=== PATIENT | male | born 1995 | race African-American/Black ===

== ENCOUNTER 2021-01-08 04:20 | Inpatient (IN) | payer OTHER ==
[2021-01-08] MEDS ORDERED: SODIUM CHLORIDE 0.9% 500 ML INFUS.BAG IV ONE (04:23)
[2021-01-08] MEDS ORDERED: ONDANSETRON 4 MG/2 ML VIAL IVPB ONE (04:23)
[2021-01-08] MEDS ORDERED: morphine CARPU-JECT 2 MG/1 ML DISP.SYRIN IVPUSH ONE (04:29)
[2021-01-08] MEDS ORDERED: morphine SULFATE 4 MG/ML VIAL ONE (04:39)
[2021-01-08 05:00] LABS: BASO % 0.5 % (0-2.0); EOS % 1.6 % (0-4.5); HEMATOCRIT 41.5 % (35.4-49); HEMOGLOBIN 13.7 GM/dL (11.7-16.9); LYMPH % 29.8 % (8-40); MCH 24.4 pg (25.7-33.7); MCHC 33.1 g/dl (32.0-35.9); MEAN CELL VOLUME 73.7 fl (80-96); MEAN PLT VOLUME 7.8 fl (7.5-11.1); MONO % 9.2 % (3.8-10.2); NEUT % 58.9 % (42.8-82.8); PLATELET COUNT 388 10^3/uL (134-434); RBC 5.63 M/mm3 (4.00-5.60); RDW 15.4 % (11.9-15.9); WHITE BLOOD COUNT 19.2 K/mm3 (4.0-10.0)
[2021-01-08 05:22] LABS: ALBUMIN 3.8 g/dl (3.4-5.0); BLOOD UREA NITROGEN 7.1 mg/dL (7-18); CALCIUM 8.9 mg/dL (8.5-10.1)
[2021-01-08 05:25] LABS: CREATININE 0.9 mg/dL (0.55-1.3)
[2021-01-08 05:27] LABS: BILIRUBIN,TOTAL 0.3 mg/dL (0.2-1); TOT PROT 7.8 g/dl (6.4-8.2)
[2021-01-08] MEDS ORDERED: DEXAMETHASONE SOD PHOSPHATE 10 MG/1 ML VIAL IVPUSH ONE (06:28)
[2021-01-08] MEDS ORDERED: DEXAMETHASONE SOD PHOSPHATE 10 MG/1 ML VIAL ONE (06:41)
[2021-01-08] MEDS ORDERED: METOCLOPRAMIDE HCL INJECTION 10 MG/2 ML VIAL IVPB ONE (07:11)
[2021-01-08] MEDS ORDERED: METOCLOPRAMIDE HCL INJECTION 10 MG/2 ML VIAL ONE (07:32)
[2021-01-08] MEDS ORDERED: ONDANSETRON 4 MG/2 ML VIAL IVPUSH ONE (07:33)
[2021-01-08] MEDS ORDERED: ONDANSETRON 4 MG/2 ML VIAL ONE (07:45)
[2021-01-08] MEDS ORDERED: morphine CARPU-JECT 2 MG/1 ML DISP.SYRIN IVPUSH PRN (08:59)
[2021-01-08] MEDS ORDERED: ACETAMINOPHEN 1000 MG/100 ML VIAL IVPB PRN (09:02)
[2021-01-08] MEDS ORDERED: morphine SULFATE 4 MG/ML VIAL IVPUSH PRN (09:02)
[2021-01-08] MEDS ORDERED: CEFEPIME HCL/D5W 2 GM/50 ML BAG IVPB SCH (10:00)
[2021-01-08] MEDS: LACTATED RINGERS SOLUTION 1,000 ML IV SCH ×2 (11:00→17:31)
[2021-01-08] MEDS ORDERED: CEFEPIME 2 GM/100 ML BAG IVPB ONE (11:55)
[2021-01-08] MEDS: CEFEPIME 2 GM in DEXTROSE 5%-WATER 2 GM/100 ML BAG IVPB SCH ×2 (13:58→19:43)
[2021-01-08 16:39] VITALS: BMI 27.1
[2021-01-08] MEDS ORDERED: PT OWN MED DRAWER 7, Y5N ONE (18:26)
[2021-01-08] MEDS: ONDANSETRON 4 MG/2 ML VIAL IVPUSH PRN (18:33)
[2021-01-08 18:43] LABS: URINE BARBITURATES NEGATIVE (NEGATIVE)
[2021-01-08 18:44] LABS: COCAINE, UR NEGATIVE (NEGATIVE); METHADONE, UR NEGATIVE (NEGATIVE); OPIATES, URI NEGATIVE (NEGATIVE); PHENCYCLIDINE,URINE NEGATIVE (NEGATIVE); URINE BENZODIAZEPINES NEGATIVE (NEGATIVE)
[2021-01-08 18:48] LABS: URINE AMPHETAMINES NEGATIVE (NEGATIVE)
[2021-01-08] MEDS: MESALAMINE 800 MG TABLET.DR PO SCH ×2 (19:13→21:33)
[2021-01-09] MEDS: ONDANSETRON 4 MG/2 ML VIAL IVPUSH PRN ×3 (00:24→13:26)
[2021-01-09] MEDS: CEFEPIME 2 GM in DEXTROSE 5%-WATER 2 GM/100 ML BAG IVPB SCH (01:06)
[2021-01-09] MEDS: LACTATED RINGERS SOLUTION 1,000 ML IV SCH (03:32)
[2021-01-09] MEDS: MESALAMINE 800 MG TABLET.DR PO SCH ×2 (06:07→13:27)
[2021-01-09 09:01] LABS: HEMATOCRIT 40.8 % (35.4-49); HEMOGLOBIN 13.6 GM/dL (11.7-16.9); MCH 24.5 pg (25.7-33.7); MCHC 33.4 g/dl (32.0-35.9); MEAN CELL VOLUME 73.2 fl (80-96); MEAN PLT VOLUME 8.3 fl (7.5-11.1); PLATELET COUNT 337 10^3/uL (134-434); RBC 5.57 M/mm3 (4.00-5.60); RDW 15.3 % (11.9-15.9); WHITE BLOOD COUNT 22.5 K/mm3 (4.0-10.0)
[2021-01-09] MEDS ORDERED: KETOROLAC TROMETHAMINE 30 MG/1 ML VIAL IVPUSH SCH (10:00)
[2021-01-09] MEDS ORDERED: ENOXAPARIN NA (PORCINE) 40 MG/0.4 ML DISP.SYRIN SQ SCH (10:00)
[2021-01-09] MEDS ORDERED: methylPREDNISolone NA SUCC 40 MG/1 ML VIAL IVPUSH SCH (10:00)
[2021-01-09 10:21] LABS: ANISOCYTOSIS 0; HELMET CELLS 0; HOWELL-JOLLY BODIES 0; MACROCYTOSIS 0; OVALOCYTE 0; PLATELET ESTIMATE NORMAL; ROULEAU 0; SICKELED CELLS 0; TARGET CELLS 0; TEAR DROP CELLS 0; TOXIC GRANULATION 0
[2021-01-09 11:10] LABS: ALBUMIN 3.8 g/dl (3.4-5.0); BILIRUBIN,TOTAL 0.4 mg/dL (0.2-1); BLOOD UREA NITROGEN 6.8 mg/dL (7-18); CALCIUM 8.9 mg/dL (8.5-10.1); CREATININE 0.9 mg/dL (0.55-1.3); TOT PROT 7.7 g/dl (6.4-8.2)
[2021-01-09 12:17] LABS: PHOSPHOROUS 3.3 mg/dL (2.5-4.9)
[2021-01-09] MEDS ORDERED: PT OWN MED DRAWER 7, Y5N ONE (13:23)
[2021-01-09 13:47] VITALS: BP 138/79; PULSE 69; TEMP 98.7
[2021-01-09] MEDS ORDERED: CEFTRIAXONE 2 GM in DEXTROSE 5%-WATER 2 GM/100 ML BAG IVPB SCH ×2 (14:00→14:15)
[2021-01-09] MEDS ORDERED: DEXTROSE 5%-WATER 100 ML IVPB ONE (15:08)
== END 2021-01-09 17:15 | disposition left against medical advice (07) | DRG 245 ==
LOC: JER 04:20 → JERBED 06:30 → J8W 14:30
PROVIDERS: ADMIT Internal Medicine; ATTEND Internal Medicine
DX: K50.919 Crohn's disease, unspecified, with unspecified complications (principal); A09 Infectious gastroenteritis and colitis, unspecified; F12.90 Cannabis use, unspecified, uncomplicated; F90.9 Attention-deficit hyperactivity disorder, unspecified type; R11.2 Nausea with vomiting, unspecified; R59.0 Localized enlarged lymph nodes; D72.829 Elevated white blood cell count, unspecified; Z90.49 Acquired absence of other specified parts of digestive tract
CPT/HCPCS: 36415; 74177-TC; 74182-TC; 80053; 80307; 82746; 83690; 83735; 84100; 84425; 84443; 85025; 86140; 87040; 87045; 87046; 87177; 87209; 87324; 87449; 93005; 93010; 99285-25; C1887; C9803; J1100; Q9967; U0003; U0005

== ENCOUNTER 2021-03-11 10:49 | Inpatient (IN) | payer OTHER ==
[2021-03-11] MEDS ORDERED: morphine CARPU-JECT 4 MG/1 ML DISP.SYRIN IVPUSH ONE ×2 (11:39→19:08)
[2021-03-11] MEDS ORDERED: SODIUM CHLORIDE 1,000 ML IV STA (11:39)
[2021-03-11] MEDS ORDERED: ONDANSETRON 4 MG/2 ML VIAL IVPUSH ONE ×3 (11:39→19:08)
[2021-03-11] MEDS ORDERED: morphine SULFATE 4 MG/ML VIAL ONE ×2 (11:59→19:09)
[2021-03-11] MEDS ORDERED: ONDANSETRON 4 MG/2 ML VIAL ONE ×3 (11:59→19:11)
[2021-03-11 12:30] LABS: BASO % 0.5 % (0-2.0); EOS % 0.1 % (0-4.5); HEMATOCRIT 39.5 % (35.4-49); HEMOGLOBIN 12.6 GM/dL (11.7-16.9); LYMPH % 9.1 % (8-40); MCH 23.2 pg (25.7-33.7); MCHC 31.8 g/dl (32.0-35.9); MEAN CELL VOLUME 73.2 fl (80-96); MEAN PLT VOLUME 8.2 fl (7.5-11.1); MONO % 4.2 % (3.8-10.2); NEUT % 86.1 % (42.8-82.8); PLATELET COUNT 404 10^3/uL (134-434); RDW 15.7 % (11.9-15.9); WHITE BLOOD COUNT 15.4 K/mm3 (4.0-10.0)
[2021-03-11 13:20] LABS: CALCIUM 9.3 mg/dL (8.5-10.1)
[2021-03-11 13:21] LABS: ALBUMIN 3.8 g/dl (3.4-5.0); BLOOD UREA NITROGEN 7.8 mg/dL (7-18)
[2021-03-11 13:24] LABS: CREATININE 0.8 mg/dL (0.55-1.3)
[2021-03-11 13:25] LABS: BILIRUBIN,TOTAL 0.3 mg/dL (0.2-1)
[2021-03-11 13:26] LABS: TOT PROT 7.3 g/dl (6.4-8.2)
[2021-03-11] MEDS ORDERED: LORazepam 2 MG/ML SDV VIAL IVPUSH ONE (14:38)
[2021-03-11] MEDS ORDERED: methylPREDNISolone NA SUCC 40 MG/1 ML VIAL IVPUSH ONE (18:09)
[2021-03-11] MEDS ORDERED: methylPREDNISolone NA SUCC 40 MG/1 ML VIAL ONE (18:15)
[2021-03-11 18:37] LABS: URINE APPEARANCE CLEAR; URINE BILIRUBIN NEGATIVE (NEGATIVE); URINE COLOR YELLOW; URINE GLUCOSE (UA) NEGATIVE (NEGATIVE); URINE KETONE NEGATIVE (NEGATIVE); URINE LEUK ESTERASE NEGATIVE (NEGATIVE); URINE NITRITE NEGATIVE (NEGATIVE); URINE PROTEIN NEGATIVE (NEGATIVE); URINE UROBILINOGEN 0.2 mg/dL (0.2-1.0)
[2021-03-11] MEDS ORDERED: METOCLOPRAMIDE HCL INJECTION 10 MG/2 ML VIAL IVPUSH PRN (20:34)
[2021-03-11] MEDS ORDERED: LACTATED RINGERS SOLUTION 1,000 ML IV SCH (20:45)
[2021-03-11] MEDS ORDERED: ACETAMINOPHEN 1000 MG/100 ML BAG IVPB PRN (21:05)
[2021-03-11] MEDS ORDERED: CEFEPIME HCL/D5W 2 GM/50 ML BAG IVPB ONE (21:33)
[2021-03-11] MEDS: SODIUM CHLORIDE 1,000 ML IV SCH (21:42)
[2021-03-11] MEDS ORDERED: CEFTRIAXONE 1 GM/50 ML BAG ONE (21:48)
[2021-03-11] MEDS: CEFTRIAXONE 1 GM in DEXTROSE 5%-WATER - 50 ML IVPB SCH (21:52)
[2021-03-11] MEDS ORDERED: METOCLOPRAMIDE HCL INJECTION 10 MG/2 ML VIAL ONE (22:16)
[2021-03-11] MEDS ORDERED: ACETAMINOPHEN INJECTION 100 ML IVPB ONE (22:37)
[2021-03-12] MEDS ORDERED: HYDROCORTISONE SOD SUCCINATE 100 MG/2 ML VIAL ONE (08:31)
[2021-03-12] MEDS ORDERED: PANTOPRAZOLE SODIUM 40 MG/100 ML BAG IVPB ONE (08:31)
[2021-03-12] MEDS ORDERED: ENOXAPARIN NA (PORCINE) 40 MG/0.4 ML DISP.SYRIN SQ ONE (08:31)
[2021-03-12] MEDS ORDERED: CEFTRIAXONE 1 GM/50 ML BAG ONE (08:31)
[2021-03-12 08:49] LABS: HEMATOCRIT 39.6 % (35.4-49); HEMOGLOBIN 12.6 GM/dL (11.7-16.9); MCH 23.1 pg (25.7-33.7); MCHC 31.7 g/dl (32.0-35.9); MEAN CELL VOLUME 72.9 fl (80-96); MEAN PLT VOLUME 7.9 fl (7.5-11.1); PLATELET COUNT 457 10^3/uL (134-434); RBC 5.43 M/mm3 (4.00-5.60); RDW 15.9 % (11.9-15.9); WHITE BLOOD COUNT 21.2 K/mm3 (4.0-10.0)
[2021-03-12 09:19] LABS: ALBUMIN 3.7 g/dl (3.4-5.0); BLOOD UREA NITROGEN 5.5 mg/dL (7-18); MAGNESIUM 1.8 mg/dL (1.8-2.4)
[2021-03-12 09:22] LABS: CREATININE 0.8 mg/dL (0.55-1.3); PHOSPHOROUS 3.4 mg/dL (2.5-4.9)
[2021-03-12 09:24] LABS: BILIRUBIN,TOTAL 0.3 mg/dL (0.2-1); TOT PROT 7.5 g/dl (6.4-8.2)
[2021-03-12] MEDS ORDERED: methylPREDNISolone NA SUCC 40 MG/1 ML VIAL IVPUSH SCH (10:00)
[2021-03-12] MEDS: PANTOPRAZOLE SODIUM 40 MG VIAL IVPUSH SCH (10:15)
[2021-03-12] MEDS: CEFTRIAXONE 1 GM in DEXTROSE 5%-WATER - 50 ML IVPB SCH (11:26)
[2021-03-12] MEDS: ENOXAPARIN NA (PORCINE) 40 MG/0.4 ML DISP.SYRIN SQ SCH (11:27)
[2021-03-12] MEDS: SODIUM CHLORIDE 1,000 ML IV SCH (18:19)
[2021-03-12 23:55] VITALS: TEMP 98.4; BMI 24.0
[2021-03-13] MEDS ORDERED: MELATONIN 5 MG TABLETS PO ONE (02:28)
[2021-03-13 06:15] VITALS: BP 131/62; PULSE 70
[2021-03-13] MEDS ORDERED: cefTRIAXone SODIUM 1 GM VIAL ONE (10:08)
[2021-03-13] MEDS ORDERED: DEXTROSE 5%-WATER - 50 ML IVPB ONE (10:08)
[2021-03-13] MEDS: SODIUM CHLORIDE 1,000 ML IV SCH (10:10)
[2021-03-13] MEDS: PANTOPRAZOLE SODIUM 40 MG VIAL IVPUSH SCH (10:11)
[2021-03-13] MEDS: CEFTRIAXONE 1 GM in DEXTROSE 5%-WATER - 50 ML IVPB SCH (10:11)
[2021-03-13] MEDS: ENOXAPARIN NA (PORCINE) 40 MG/0.4 ML DISP.SYRIN SQ SCH (10:12)
[2021-03-13 11:45] LABS: BASO % 0.5 % (0-2.0); EOS % 0.7 % (0-4.5); HEMATOCRIT 37.1 % (35.4-49); HEMOGLOBIN 12.4 GM/dL (11.7-16.9); LYMPH % 25.1 % (8-40); MCH 24.4 pg (25.7-33.7); MCHC 33.4 g/dl (32.0-35.9); MEAN CELL VOLUME 72.9 fl (80-96); MEAN PLT VOLUME 7.8 fl (7.5-11.1); MONO % 12.5 % (3.8-10.2); NEUT % 61.2 % (42.8-82.8); PLATELET COUNT 338 10^3/uL (134-434); RBC 5.08 M/mm3 (4.00-5.60); RDW 15.8 % (11.9-15.9); WHITE BLOOD COUNT 9.9 K/mm3 (4.0-10.0)
[2021-03-13 13:37] LABS: CALCIUM 9.3 mg/dL (8.5-10.1)
[2021-03-13 13:38] LABS: ALBUMIN 4.2 g/dl (3.4-5.0); BLOOD UREA NITROGEN 18.9 mg/dL (7-18); MAGNESIUM 2.5 mg/dL (1.8-2.4)
[2021-03-13 13:40] LABS: PHOSPHOROUS 3.6 mg/dL (2.5-4.9)
[2021-03-13 13:41] LABS: CREATININE 1.2 mg/dL (0.55-1.3)
[2021-03-13 13:42] LABS: TOT PROT 7.4 g/dl (6.4-8.2)
[2021-03-13 13:48] LABS: BILIRUBIN,TOTAL 0.8 mg/dL (0.2-1)
[2021-03-13] MEDS ORDERED: MESALAMINE 800 MG TABLET.DR PO SCH (22:00)
== END 2021-03-13 14:04 | disposition home or self-care (01) | DRG 245 ==
LOC: JER 10:49 → JERBED 19:32 → J6S 03-12 21:57
PROVIDERS: ADMIT Hospitalist
DX: K50.90 Crohn's disease, unspecified, without complications (principal); K52.9 Noninfective gastroenteritis and colitis, unspecified; D72.829 Elevated white blood cell count, unspecified; F90.9 Attention-deficit hyperactivity disorder, unspecified type; K21.9 Gastro-esophageal reflux disease without esophagitis; F12.90 Cannabis use, unspecified, uncomplicated; R59.9 Enlarged lymph nodes, unspecified; R11.2 Nausea with vomiting, unspecified; K61.0 Anal abscess
CPT/HCPCS: 36415; 71046-TC-FY; 71250-TC; 74177-TC; 80053; 80307; 81003; 83690; 83735; 83993; 84100; 85025; 85027; 86140; 87045; 87046; 87086; 87324; 87449; 93005; 93010; 99285-25; C9803; J0131; Q9967; U0003; U0005

== ENCOUNTER 2021-05-10 00:13 | Emergency (ER) | payer OTHER ==
[2021-05-10 00:40] VITALS: BP 133/79; PULSE 71; TEMP 97.7; BMI 28.8
[2021-05-10] MEDS ORDERED: AMOX TR/POT CLAV 875MG/125MG TABLETS (FP) ONE (01:43)
== END 2021-05-10 02:15 | disposition home or self-care (01) ==
LOC: JER 00:13
DX: K04.7 Periapical abscess without sinus (principal)
CPT/HCPCS: 99283-25

== ENCOUNTER 2021-11-23 09:49 | Inpatient (IN) | payer OTHER ==
[2021-11-23] MEDS ORDERED: SODIUM CHLORIDE 0.9% 500 ML INFUS.BAG IV ONE (10:11)
[2021-11-23] MEDS ORDERED: ONDANSETRON 4 MG/2 ML VIAL IVPUSH ONE (10:11)
[2021-11-23] MEDS ORDERED: ONDANSETRON 4 MG/2 ML VIAL ONE ×2 (10:12→10:19)
[2021-11-23 10:27] LABS: BASO % 0.5 % (0-2.0); EOS % 0.8 % (0-4.5); HEMATOCRIT 42.2 % (35.4-49); HEMOGLOBIN 13.9 GM/dL (11.7-16.9); LYMPH % 20.1 % (8-40); MCH 23.8 pg (25.7-33.7); MCHC 32.8 g/dl (32.0-35.9); MEAN CELL VOLUME 72.6 fl (80-96); MEAN PLT VOLUME 7.8 fl (7.5-11.1); MONO % 7.6 % (3.8-10.2); PLATELET COUNT 407 10^3/uL (134-434); RBC 5.81 M/mm3 (4.00-5.60); RDW 16.9 % (11.9-15.9); WHITE BLOOD COUNT 16.2 K/mm3 (4.0-10.0)
[2021-11-23 10:48] LABS: ALBUMIN 3.9 g/dl (3.4-5.0); BLOOD UREA NITROGEN 6.8 mg/dL (7-18); CALCIUM 9.7 mg/dL (8.5-10.1); MAGNESIUM 2.4 mg/dL (1.8-2.4)
[2021-11-23 10:51] LABS: CREATININE 0.9 mg/dL (0.55-1.3); PHOSPHOROUS 2.3 mg/dL (2.5-4.9)
[2021-11-23 10:53] LABS: BILIRUBIN,TOTAL 0.4 mg/dL (0.2-1); TOT PROT 8.1 g/dl (6.4-8.2)
[2021-11-23 11:02] LABS: LACTIC ACID 2.5 mmol/L (0.4-2.0)
[2021-11-23] MEDS ORDERED: METOCLOPRAMIDE HCL INJECTION 10 MG/2 ML VIAL IVPB ONE (14:23)
[2021-11-23] MEDS ORDERED: METOCLOPRAMIDE HCL INJECTION 10 MG/2 ML VIAL ONE (14:27)
[2021-11-23] MEDS ORDERED: ACETAMINOPHEN 1000 MG/100 ML BAG IVPB PRN (14:38)
[2021-11-23] MEDS: D5-1/2NS+20 MEQ KCL - 20 MEQ/1,000 ML INFUS.BAG IV SCH (15:45)
[2021-11-23 16:01] LABS: PH,URINE 6.5 (5.0-8.0); URINE APPEARANCE CLEAR; URINE BILIRUBIN NEGATIVE (NEGATIVE); URINE COLOR YELLOW; URINE GLUCOSE (UA) NEGATIVE (NEGATIVE); URINE KETONE 15 mg/dl (NEGATIVE); URINE NITRITE NEGATIVE (NEGATIVE); URINE PROTEIN TRACE (NEGATIVE); URINE UROBILINOGEN 0.2 mg/dL (0.2-1.0)
[2021-11-23 16:02] LABS: URINE LEUK ESTERASE NEGATIVE (NEGATIVE)
[2021-11-23] MEDS ORDERED: CIPROFLOXACIN 400 MG/D5W 400 MG/200 ML IVPB IVPB ONE (17:00)
[2021-11-23 20:13] VITALS: RESP 18
[2021-11-23 23:21] VITALS: BMI 29.7
[2021-11-24] MEDS: D5-1/2NS+20 MEQ KCL - 20 MEQ/1,000 ML INFUS.BAG IV SCH ×3 (04:55→21:15)
[2021-11-24 09:02] LABS: HEMATOCRIT 40.7 % (35.4-49); HEMOGLOBIN 13.2 GM/dL (11.7-16.9); MCH 23.6 pg (25.7-33.7); MCHC 32.4 g/dl (32.0-35.9); MEAN PLT VOLUME 8.2 fl (7.5-11.1); PLATELET COUNT 378 10^3/uL (134-434); RBC 5.57 M/mm3 (4.00-5.60); RDW 16.6 % (11.9-15.9); WHITE BLOOD COUNT 20.1 K/mm3 (4.0-10.0)
[2021-11-24 09:29] LABS: CALCIUM 9.2 mg/dL (8.5-10.1)
[2021-11-24 09:31] LABS: ALBUMIN 3.6 g/dl (3.4-5.0); BLOOD UREA NITROGEN 4.1 mg/dL (7-18); MAGNESIUM 2.1 mg/dL (1.8-2.4)
[2021-11-24 09:34] LABS: CREATININE 0.7 mg/dL (0.55-1.3)
[2021-11-24 09:35] LABS: BILIRUBIN,TOTAL 0.4 mg/dL (0.2-1); TOT PROT 7.5 g/dl (6.4-8.2)
[2021-11-24 11:47] LABS: ANISOCYTOSIS 2+; MACROCYTOSIS 0; TEAR DROP CELLS 1+
[2021-11-24] MEDS: CEFTRIAXONE 2 GM in DEXTROSE 5%-WATER 100 ML IVPB SCH (15:13)
[2021-11-24] MEDS ORDERED: LORazepam 2 MG/ML SDV VIAL IVPUSH ONE (23:48)
[2021-11-25] MEDS: TRIMETHOBENZAMIDE HCL 200MG/2ML INJ IM PRN ×2 (00:40→14:32)
[2021-11-25] MEDS: CEFTRIAXONE 2 GM in DEXTROSE 5%-WATER 100 ML IVPB SCH (09:13)
[2021-11-25 10:10] LABS: BASO % 0.8 % (0-2.0); EOS % 0.6 % (0-4.5); HEMATOCRIT 42.4 % (35.4-49); HEMOGLOBIN 13.9 GM/dL (11.7-16.9); LYMPH % 25.8 % (8-40); MCH 24.3 pg (25.7-33.7); MCHC 32.8 g/dl (32.0-35.9); MEAN PLT VOLUME 8.3 fl (7.5-11.1); MONO % 12.7 % (3.8-10.2); NEUT % 60.1 % (42.8-82.8); PLATELET COUNT 347 10^3/uL (134-434); RBC 5.73 M/mm3 (4.00-5.60); RDW 16.9 % (11.9-15.9); WHITE BLOOD COUNT 11.5 K/mm3 (4.0-10.0)
[2021-11-25 10:30] LABS: BLOOD UREA NITROGEN 7.1 mg/dL (7-18); CALCIUM 9.1 mg/dL (8.5-10.1)
[2021-11-25 10:31] LABS: ALBUMIN 3.7 g/dl (3.4-5.0); MAGNESIUM 2.3 mg/dL (1.8-2.4)
[2021-11-25 10:33] LABS: CREATININE 0.9 mg/dL (0.55-1.3)
[2021-11-25 10:35] LABS: BILIRUBIN,TOTAL 0.6 mg/dL (0.2-1); TOT PROT 7.4 g/dl (6.4-8.2)
[2021-11-25] MEDS: ENOXAPARIN NA (PORCINE) 40 MG/0.4 ML DISP.SYRIN SQ SCH (11:19)
[2021-11-25] MEDS ORDERED: PROCHLORPERAZINE INJECTION 10 MG/2 ML VIAL IVPB PRN (15:16)
[2021-11-25] MEDS ORDERED: ONDANSETRON 4 MG/2 ML VIAL IVPUSH PRN (16:17)
[2021-11-25] MEDS: D5-1/2NS+20 MEQ KCL - 20 MEQ/1,000 ML INFUS.BAG IV SCH (16:25)
[2021-11-26] MEDS ORDERED: LORazepam 2 MG/ML SDV VIAL IVPUSH ONE (00:30)
[2021-11-26] MEDS: D5-1/2NS+20 MEQ KCL - 20 MEQ/1,000 ML INFUS.BAG IV SCH ×2 (06:07→17:49)
[2021-11-26] MEDS: CEFTRIAXONE 2 GM in DEXTROSE 5%-WATER 100 ML IVPB SCH (09:55)
[2021-11-26] MEDS: ENOXAPARIN NA (PORCINE) 40 MG/0.4 ML DISP.SYRIN SQ SCH (09:55)
[2021-11-26 10:11] LABS: BASO % 0.5 % (0-2.0); EOS % 0.2 % (0-4.5); HEMATOCRIT 41.8 % (35.4-49); HEMOGLOBIN 13.4 GM/dL (11.7-16.9); LYMPH % 19.1 % (8-40); MCH 23.4 pg (25.7-33.7); MCHC 32.2 g/dl (32.0-35.9); MEAN CELL VOLUME 72.8 fl (80-96); MEAN PLT VOLUME 8.3 fl (7.5-11.1); NEUT % 70.2 % (42.8-82.8); PLATELET COUNT 400 10^3/uL (134-434); RBC 5.74 M/mm3 (4.00-5.60); RDW 16.6 % (11.9-15.9); WHITE BLOOD COUNT 15.2 K/mm3 (4.0-10.0)
[2021-11-26 10:24] LABS: CALCIUM 8.9 mg/dL (8.5-10.1)
[2021-11-26 10:25] LABS: BLOOD UREA NITROGEN 5.9 mg/dL (7-18); MAGNESIUM 2.1 mg/dL (1.8-2.4)
[2021-11-26 10:28] LABS: CREATININE 0.8 mg/dL (0.55-1.3); PHOSPHOROUS 4.1 mg/dL (2.5-4.9)
[2021-11-27] MEDS ORDERED: MELATONIN 5 MG TABLETS PO PRN (00:33)
[2021-11-27] MEDS: D5-1/2NS+20 MEQ KCL - 20 MEQ/1,000 ML INFUS.BAG IV SCH (06:13)
[2021-11-27] MEDS: CEFTRIAXONE 2 GM in DEXTROSE 5%-WATER 100 ML IVPB SCH (09:33)
[2021-11-27] MEDS: ENOXAPARIN NA (PORCINE) 40 MG/0.4 ML DISP.SYRIN SQ SCH (09:34)
[2021-11-27 13:00] LABS: BASO % 0.8 % (0-2.0); EOS % 1.1 % (0-4.5); HEMOGLOBIN 13.8 GM/dL (11.7-16.9); MCH 24.2 pg (25.7-33.7); MCHC 32.9 g/dl (32.0-35.9); MEAN CELL VOLUME 73.6 fl (80-96); MEAN PLT VOLUME 8.4 fl (7.5-11.1); MONO % 11.8 % (3.8-10.2); NEUT % 57.3 % (42.8-82.8); PLATELET COUNT 385 10^3/uL (134-434); RBC 5.71 M/mm3 (4.00-5.60); RDW 16.4 % (11.9-15.9); WHITE BLOOD COUNT 11.4 K/mm3 (4.0-10.0)
[2021-11-27 13:46] LABS: TOT PROT 7.1 g/dl (6.4-8.2)
[2021-11-27 13:55] LABS: ALBUMIN 3.6 g/dl (3.4-5.0); BLOOD UREA NITROGEN 6.7 mg/dL (7-18); MAGNESIUM 2.1 mg/dL (1.8-2.4); PHOSPHOROUS 3.5 mg/dL (2.5-4.9)
[2021-11-27 13:57] LABS: CALCIUM 8.8 mg/dL (8.5-10.1)
[2021-11-27 13:59] LABS: CREATININE 0.9 mg/dL (0.55-1.3)
[2021-11-27 14:02] LABS: BILIRUBIN,TOTAL 0.4 mg/dL (0.2-1)
[2021-11-27 14:23] VITALS: BP 115/74; PULSE 83; TEMP 97.7
== END 2021-11-27 17:07 | disposition left against medical advice (07) | DRG 245 ==
LOC: JER 09:49 → JERBED 13:53 → J6S 20:44
PROVIDERS: ADMIT Internal Medicine; ATTEND Internal Medicine
DX: K50.90 Crohn's disease, unspecified, without complications (principal); E87.21 Acute metabolic acidosis; K61.0 Anal abscess; D72.829 Elevated white blood cell count, unspecified; F12.90 Cannabis use, unspecified, uncomplicated; F17.200 Nicotine dependence, unspecified, uncomplicated; F90.9 Attention-deficit hyperactivity disorder, unspecified type; I88.0 Nonspecific mesenteric lymphadenitis; R10.13 Epigastric pain; R14.0 Abdominal distension (gaseous); R19.7 Diarrhea, unspecified
CPT/HCPCS: 0241U-QW; 36415; 74019-TC-FY; 74177-TC; 80048; 80053; 81003; 83605; 83690; 83735; 83993; 84100; 85025; 86140; 87040; 87324; 87449; 87493; 87496; 93005; 93010; 99285-25; Q9967

== ENCOUNTER 2023-01-28 05:27 | Emergency (ER) | payer OTHER ==
[2023-01-28 05:44] VITALS: RESP 20; BMI 21.4
[2023-01-28] MEDS ORDERED: SODIUM CHLORIDE 0.9% 500 ML INFUS.BAG IV ONE ×2 (07:52→11:44)
[2023-01-28] MEDS ORDERED: ONDANSETRON 4 MG/2 ML VIAL IVPUSH ONE (07:52)
[2023-01-28] MEDS ORDERED: ACETAMINOPHEN 1000 MG/100 ML BAG IVPB ONE (07:52)
[2023-01-28] MEDS ORDERED: ACETAMINOPHEN INJECTION 100 ML IVPB ONE (08:05)
[2023-01-28] MEDS ORDERED: ONDANSETRON 4 MG/2 ML VIAL ONE (08:05)
[2023-01-28 08:51] LABS: BASO % 0.3 % (0-2.0); EOS % 0.1 % (0-4.5); HEMATOCRIT 39.3 % (35.4-49); HEMOGLOBIN 13.1 GM/dL (11.7-16.9); MCH 24.4 pg (25.7-33.7); MCHC 33.3 g/dl (32.0-35.9); MEAN CELL VOLUME 73.3 fl (80-96); MEAN PLT VOLUME 7.6 fl (7.5-11.1); MONO % 6.5 % (3.8-10.2); NEUT % 86.1 % (42.8-82.8); PLATELET COUNT 337 10^3/uL (134-434); RBC 5.36 M/mm3 (4.00-5.60); RDW 16.8 % (11.9-15.9); WHITE BLOOD COUNT 16.6 K/mm3 (4.0-10.0)
[2023-01-28 08:58] LABS: INR 1.03 (0.83-1.09); PROTHROMBIN TIME (PATIENT) 11.9 SEC (9.7-13.0)
[2023-01-28 09:00] LABS: ACTIVATED PTT 26.5 SECONDS (25.2-36.5)
[2023-01-28 09:15] LABS: POTASSIUM 3.8 mmol/L (3.5-5.1)
[2023-01-28 09:19] LABS: ALBUMIN 3.7 g/dl (3.4-5.0); BLOOD UREA NITROGEN 11.2 mg/dL (7-18); CALCIUM 8.7 mg/dL (8.5-10.1); MAGNESIUM 2.2 mg/dL (1.8-2.4)
[2023-01-28 09:22] LABS: CREATININE 0.9 mg/dL (0.55-1.3); PHOSPHOROUS 2.3 mg/dL (2.5-4.9)
[2023-01-28 09:25] LABS: BILIRUBIN,TOTAL 0.3 mg/dL (0.2-1); TOT PROT 7.4 g/dl (6.4-8.2)
[2023-01-28] MEDS ORDERED: METOCLOPRAMIDE HCL INJECTION 10 MG/2 ML VIAL IVPB ONE (11:43)
[2023-01-28] MEDS ORDERED: METOCLOPRAMIDE HCL INJECTION 10 MG/2 ML VIAL ONE (11:58)
[2023-01-28 14:23] VITALS: BP 132/68; PULSE 80; TEMP 98.2
== END 2023-01-28 17:15 | disposition home or self-care (01) ==
LOC: JER 05:27
PROC: 3E033NZ Introduction of Analgesics, Hypnotics, Sedatives into Peripheral Vein, Percutaneous Approach (ICD-10-PCS; principal; 2023-01-28)
PROC: 3E033GC Introduction of Other Therapeutic Substance into Peripheral Vein, Percutaneous Approach (ICD-10-PCS; 2023-01-28)
PROC: 3E033GC Introduction of Other Therapeutic Substance into Peripheral Vein, Percutaneous Approach (ICD-10-PCS; 2023-01-28)
DX: K50.919 Crohn's disease, unspecified, with unspecified complications (principal); R11.2 Nausea with vomiting, unspecified; R19.7 Diarrhea, unspecified; Z20.822 Contact with and (suspected) exposure to COVID-19
CPT/HCPCS: 0241U-QW; 36415; 74177-TC; 80053; 83605; 83690; 83735; 84100; 85025; 85610; 85730; 96374; 96375; 99285-25; Q9967

== ENCOUNTER 2023-03-15 16:10 | Inpatient (IN) | payer OTHER ==
[2023-03-15] MEDS ORDERED: ACETAMINOPHEN 1000 MG/100 ML BAG IVPB ONE (17:31)
[2023-03-15] MEDS ORDERED: ONDANSETRON 4 MG/2 ML VIAL IVPUSH ONE (17:31)
[2023-03-15] MEDS ORDERED: SODIUM CHLORIDE 0.9% 500 ML INFUS.BAG IV ONE (17:31)
[2023-03-15] MEDS ORDERED: ONDANSETRON 4 MG/2 ML VIAL ONE (18:02)
[2023-03-15] MEDS ORDERED: ACETAMINOPHEN INJECTION 100 ML IVPB ONE (18:02)
[2023-03-15 18:23] LABS: HEMATOCRIT 41.5 % (35.4-49); HEMOGLOBIN 14.2 GM/dL (11.7-16.9); MCH 24.7 pg (25.7-33.7); MCHC 34.2 g/dl (32.0-35.9); MEAN CELL VOLUME 72.3 fl (80-96); MEAN PLT VOLUME 7.2 fl (7.5-11.1); PLATELET COUNT 416 10^3/uL (134-434); RBC 5.74 M/mm3 (4.00-5.60)
[2023-03-15 18:56] LABS: POTASSIUM 3.7 mmol/L (3.5-5.1)
[2023-03-15 18:58] LABS: ALBUMIN 4.1 g/dl (3.4-5.0); BLOOD UREA NITROGEN 7.3 mg/dL (7-18); CALCIUM 9.9 mg/dL (8.5-10.1)
[2023-03-15 18:59] LABS: MAGNESIUM 2.1 mg/dL (1.8-2.4)
[2023-03-15 19:03] LABS: BILIRUBIN,TOTAL 0.9 mg/dL (0.2-1); TOT PROT 8.5 g/dl (6.4-8.2)
[2023-03-15 19:59] LABS: ANISOCYTOSIS 1+; MACROCYTOSIS 1+
[2023-03-15] MEDS ORDERED: PIPERACILLIN/TAZOB 3.375 GM 3.375 GM in DEXTROSE 5%-WATER - 50 ML IVPB ONE (21:48)
[2023-03-15] MEDS ORDERED: PIPERACILLIN/TAZOB 3.375 GM 3.375 GM/50 ML BAG IVPB ONE (21:54)
[2023-03-15] MEDS ORDERED: SODIUM CHLORIDE 1,000 ML IV SCH (23:45)
[2023-03-15] MEDS ORDERED: ONDANSETRON 4 MG/2 ML VIAL IVPUSH PRN (23:59)
[2023-03-16] MEDS ORDERED: ONDANSETRON 4 MG/2 ML VIAL ONE (00:55)
[2023-03-16 04:53] VITALS: BMI 23.8
[2023-03-16] MEDS ORDERED: ACETAMINOPHEN 325 MG TABLET (FP) PO ONE (04:53)
[2023-03-16] MEDS: PIPERACILLIN/TAZOB 3.375 GM 3.375 GM in DEXTROSE 5%-WATER - 50 ML IVPB SCH ×3 (05:07→17:13)
[2023-03-16] MEDS ORDERED: PIPERACILLIN/TAZOB 3.375 GM 3.375 GM in DEXTROSE 5%-WATER - 50 ML IVPB SCH (06:00)
[2023-03-16 09:48] LABS: BASO % 0.2 % (0-2.0); EOS % 0.5 % (0-4.5); HEMATOCRIT 39.1 % (35.4-49); LYMPH % 17.7 % (8-40); MCH 24.5 pg (25.7-33.7); MCHC 33.2 g/dl (32.0-35.9); MEAN CELL VOLUME 73.6 fl (80-96); MEAN PLT VOLUME 7.7 fl (7.5-11.1); MONO % 12.9 % (3.8-10.2); NEUT % 68.7 % (42.8-82.8); PLATELET COUNT 393 10^3/uL (134-434); RBC 5.32 M/mm3 (4.00-5.60); RDW 16.3 % (11.9-15.9); WHITE BLOOD COUNT 17.2 K/mm3 (4.0-10.0)
[2023-03-16 09:58] LABS: POTASSIUM 3.4 mmol/L (3.5-5.1)
[2023-03-16] MEDS ORDERED: ENOXAPARIN NA (PORCINE) 40 MG/0.4 ML DISP.SYRIN SQ SCH (10:00)
[2023-03-16 10:07] LABS: ALBUMIN 3.5 g/dl (3.4-5.0)
[2023-03-16 10:08] LABS: BLOOD UREA NITROGEN 5.1 mg/dL (7-18); CALCIUM 8.8 mg/dL (8.5-10.1); MAGNESIUM 2.2 mg/dL (1.8-2.4)
[2023-03-16 10:10] LABS: CREATININE 0.8 mg/dL (0.55-1.3)
[2023-03-16 10:12] LABS: BILIRUBIN,TOTAL 0.9 mg/dL (0.2-1); TOT PROT 7.5 g/dl (6.4-8.2)
[2023-03-16] MEDS ORDERED: ACETAMINOPHEN 1000 MG/100 ML BAG IVPB PRN (11:05)
[2023-03-16] MEDS ORDERED: D5-1/2NS+10 MEQ KCL - 10 MEQ/1,000 ML INFUS.BAG IV SCH (11:15)
[2023-03-16] MEDS ORDERED: MESALAMINE 400 MG PO SCH (11:15)
[2023-03-16 11:49] LABS: PHOSPHOROUS 3.8 mg/dL (2.5-4.9)
[2023-03-16] MEDS ORDERED: FAMOTIDINE 20 MG/50 ML IVPB 20 MG/50 ML MG IVPB SCH (13:00)
[2023-03-16 15:49] VITALS: RESP 18; TEMP 98.4
[2023-03-16 23:14] VITALS: BP 120/88; PULSE 76
== END 2023-03-16 23:37 | disposition left against medical advice (07) | DRG 245 ==
LOC: JER 16:10 → INTOOBSV 21:15 → JERBED 21:15 → UNDOADMOB 21:15 → OBSVTOIN 21:15 → JERBED 23:57 → J8W 03-16 02:12 → JERBED 03-16 02:12
PROVIDERS: ADMIT Internal Medicine; ATTEND Internal Medicine
DX: K50.918 Crohn's disease, unspecified, with other complication (principal); F12.10 Cannabis abuse, uncomplicated; I25.10 Atherosclerotic heart disease of native coronary artery without angina pectoris; K21.9 Gastro-esophageal reflux disease without esophagitis; E87.6 Hypokalemia; F90.9 Attention-deficit hyperactivity disorder, unspecified type; D72.829 Elevated white blood cell count, unspecified
CPT/HCPCS: 36415; 74019-TC-FY; 74177-TC; 80053; 83690; 83735; 84100; 84443; 85025; 85651; 86140; 87040; 99285-25; Q9967

== ENCOUNTER 2023-04-24 11:37 | Observation (INO) | payer OTHER ==
[2023-04-24] MEDS ORDERED: ONDANSETRON 4 MG/2 ML VIAL ONE ×2 (12:24→14:46)
[2023-04-24] MEDS ORDERED: ACETAMINOPHEN INJECTION 100 ML IVPB ONE (12:33)
[2023-04-24] MEDS: ONDANSETRON 4 MG/2 ML VIAL IVPUSH ONE ×2 (12:44→14:43)
[2023-04-24] MEDS: ACETAMINOPHEN 1000 MG/100 ML BAG IVPB ONE (12:44)
[2023-04-24] MEDS: LACTATED RINGERS SOLUTION 1000 ML INFUS.BAG IV ONE (12:44)
[2023-04-24] MEDS: FAMOTIDINE 20 MG/50 ML IVPB 20 MG/50 ML MG IVPB ONE (12:44)
[2023-04-24 12:50] LABS: BASO % 0.5 % (0-2.0); EOS % 1.4 % (0-4.5); HEMATOCRIT 41.9 % (35.4-49); HEMOGLOBIN 13.9 GM/dL (11.7-16.9); LYMPH % 18.2 % (8-40); MCH 24.4 pg (25.7-33.7); MCHC 33.2 g/dl (32.0-35.9); MEAN CELL VOLUME 73.5 fl (80-96); MEAN PLT VOLUME 7.8 fl (7.5-11.1); MONO % 8.8 % (3.8-10.2); NEUT % 71.1 % (42.8-82.8); PLATELET COUNT 370 10^3/uL (134-434); RDW 16.6 % (11.9-15.9); WHITE BLOOD COUNT 19.2 K/mm3 (4.0-10.0)
[2023-04-24] MEDS ORDERED: FAMOTIDINE 20 MG/50 ML IVPB 20 MG/50 ML MG IVPB ONE (12:57)
[2023-04-24 13:22] LABS: POTASSIUM 3.5 mmol/L (3.5-5.1)
[2023-04-24 13:24] LABS: CALCIUM 8.9 mg/dL (8.5-10.1)
[2023-04-24 13:25] LABS: ALBUMIN 3.6 g/dl (3.4-5.0); BLOOD UREA NITROGEN 7.9 mg/dL (7-18); MAGNESIUM 1.9 mg/dL (1.8-2.4)
[2023-04-24 13:28] LABS: CREATININE 0.9 mg/dL (0.55-1.3); PHOSPHOROUS 1.8 mg/dL (2.5-4.9)
[2023-04-24 13:29] LABS: BILIRUBIN,TOTAL 0.4 mg/dL (0.2-1); TOT PROT 7.5 g/dl (6.4-8.2)
[2023-04-24] MEDS: morphine CARPU-JECT 2 MG/1 ML DISP.SYRIN IVPUSH ONE (14:15)
[2023-04-24] MEDS ORDERED: ACETAMINOPHEN 325 MG TABLET (FP) PO PRN (17:54)
[2023-04-24] MEDS: SODIUM PHOSPHATE - 15 MM in DEXTROSE 5%-WATER - 250 ML IVPB ONE (18:01)
[2023-04-24] MEDS: LACTATED RINGERS SOLUTION 1,000 ML/1,000 ML INFUS.BAG IV SCH (18:14)
[2023-04-24] MEDS: methylPREDNISolone NA SUCC 40 MG/1 ML VIAL IVPUSH SCH (21:35)
[2023-04-24] MEDS ORDERED: CIPROFLOXACIN 400 MG/D5W 400 MG/200 ML IVPB IVPB SCH (22:00)
[2023-04-25] MEDS: ONDANSETRON 4 MG/2 ML VIAL IVPUSH PRN (00:39)
[2023-04-25 02:19] VITALS: RESP 18; BMI 25.4
[2023-04-25 09:01] LABS: BASO % 0.1 % (0-2.0); HEMATOCRIT 39.5 % (35.4-49); HEMOGLOBIN 13.3 GM/dL (11.7-16.9); LYMPH % 10.9 % (8-40); MCH 24.4 pg (25.7-33.7); MCHC 33.7 g/dl (32.0-35.9); MEAN CELL VOLUME 72.6 fl (80-96); MEAN PLT VOLUME 7.9 fl (7.5-11.1); MONO % 5.4 % (3.8-10.2); NEUT % 83.6 % (42.8-82.8); PLATELET COUNT 401 10^3/uL (134-434); RBC 5.44 M/mm3 (4.00-5.60); RDW 16.5 % (11.9-15.9); WHITE BLOOD COUNT 18.3 K/mm3 (4.0-10.0)
[2023-04-25 09:26] LABS: POTASSIUM 3.6 mmol/L (3.5-5.1)
[2023-04-25 09:43] LABS: BLOOD UREA NITROGEN 4.9 mg/dL (7-18); CALCIUM 9.6 mg/dL (8.5-10.1); MAGNESIUM 2.1 mg/dL (1.8-2.4)
[2023-04-25 09:44] LABS: ALBUMIN 3.7 g/dl (3.4-5.0); TOT PROT 7.5 g/dl (6.4-8.2)
[2023-04-25 09:46] LABS: PHOSPHOROUS 3.2 mg/dL (2.5-4.9)
[2023-04-25 09:48] LABS: BILIRUBIN,TOTAL 0.5 mg/dL (0.2-1); CREATININE 0.7 mg/dL (0.55-1.3)
[2023-04-25] MEDS: ENOXAPARIN NA (PORCINE) 40 MG/0.4 ML DISP.SYRIN SQ SCH (10:02)
[2023-04-25] MEDS: MESALAMINE 800 MG TABLET.DR PO SCH (13:30)
[2023-04-25] MEDS ORDERED: MESALAMINE 800 MG TABLET.DR PO SCH ×2 (14:00→22:00)
[2023-04-25] MEDS: LACTATED RINGERS SOLUTION 1,000 ML/1,000 ML INFUS.BAG IV SCH (18:55)
[2023-04-25] MEDS: MELATONIN 5 MG TABLETS PO SCH (21:19)
[2023-04-26 08:20] LABS: HEMATOCRIT 38.9 % (35.4-49); HEMOGLOBIN 12.7 GM/dL (11.7-16.9); MCH 24.1 pg (25.7-33.7); MCHC 32.7 g/dl (32.0-35.9); MEAN CELL VOLUME 73.7 fl (80-96); MEAN PLT VOLUME 7.8 fl (7.5-11.1); PLATELET COUNT 333 10^3/uL (134-434); RBC 5.28 M/mm3 (4.00-5.60); RDW 16.3 % (11.9-15.9); WHITE BLOOD COUNT 17.3 K/mm3 (4.0-10.0)
[2023-04-26 08:39] LABS: POTASSIUM 3.6 mmol/L (3.5-5.1); SODIUM 140 mmol/L (136-145)
[2023-04-26 08:41] LABS: CO2 30 mmol/L (21-32); GLUCOSE,RANDOM 87 mg/dL (74-106)
[2023-04-26 08:44] LABS: ANION GAP 4 mmol/L (4-13); BLOOD UREA NITROGEN 9.8 mg/dL (7-18); CHLORIDE 106 mmol/L (98-107); CREATININE 0.9 mg/dL (0.55-1.3)
[2023-04-26 08:58] VITALS: BP 118/60; PULSE 67; TEMP 98.3
== END 2023-04-26 12:15 | disposition home or self-care (01) ==
LOC: JER 11:37 → JERBED 16:13 → J6S 19:58
PROVIDERS: ADMIT Internal Medicine; ATTEND Internal Medicine
PROC: 3E033GC Introduction of Other Therapeutic Substance into Peripheral Vein, Percutaneous Approach (ICD-10-PCS; principal; 2023-04-24)
PROC: 3E023GC Introduction of Other Therapeutic Substance into Muscle, Percutaneous Approach (ICD-10-PCS; 2023-04-24)
PROC: 3E0337Z Introduction of Electrolytic and Water Balance Substance into Peripheral Vein, Percutaneous Approach (ICD-10-PCS; 2023-04-24)
PROC: 3E03329 Introduction of Other Anti-infective into Peripheral Vein, Percutaneous Approach (ICD-10-PCS; 2023-04-24)
PROC: 3E033NZ Introduction of Analgesics, Hypnotics, Sedatives into Peripheral Vein, Percutaneous Approach (ICD-10-PCS; 2023-04-24)
DX: K52.9 Noninfective gastroenteritis and colitis, unspecified (principal); D72.829 Elevated white blood cell count, unspecified; K50.90 Crohn's disease, unspecified, without complications; R73.9 Hyperglycemia, unspecified; F90.9 Attention-deficit hyperactivity disorder, unspecified type; M41.9 Scoliosis, unspecified; F12.90 Cannabis use, unspecified, uncomplicated
CPT/HCPCS: 0241U-QW; 36415; 71045-TC-FY; 74177-TC; 80048; 80053; 83690; 83735; 84100; 85025; 85027; 85651; 86140; 86850; 86900; 86901; 87040; 93005; 93010; 96361; 96365; 96367; 96372; 96375; 96376; 99285-25; G0378; Q9967

== ENCOUNTER 2023-11-05 18:25 | Observation (INO) | payer OTHER ==
[2023-11-05 18:48] VITALS: RESP 18; BMI 28.8
[2023-11-05] MEDS ORDERED: ONDANSETRON 4 MG/2 ML VIAL ONE ×2 (19:53→21:20)
[2023-11-05] MEDS ORDERED: METOCLOPRAMIDE HCL INJECTION 10 MG/2 ML VIAL ONE (19:53)
[2023-11-05 20:13] LABS: BASO % 0.5 % (0-2.0); EOS % 0.4 % (0-4.5); HEMATOCRIT 38.8 % (35.4-49); HEMOGLOBIN 12.6 GM/dL (11.7-16.9); MCH 23.6 pg (25.7-33.7); MCHC 32.5 g/dl (32.0-35.9); MEAN CELL VOLUME 72.5 fl (80-96); MEAN PLT VOLUME 7.5 fl (7.5-11.1); MONO % 7.3 % (3.8-10.2); NEUT % 79.8 % (42.8-82.8); PLATELET COUNT 370 10^3/uL (134-434); RBC 5.35 M/mm3 (4.00-5.60); WHITE BLOOD COUNT 19.3 K/mm3 (4.0-10.0)
[2023-11-05] MEDS: ONDANSETRON 4 MG TABLET PO ONE (20:18)
[2023-11-05] MEDS: METOCLOPRAMIDE HCL INJECTION 10 MG/2 ML VIAL IVPB ONE (20:18)
[2023-11-05] MEDS: LACTATED RINGERS SOLUTION 1000 ML INFUS.BAG IV ONE (20:18)
[2023-11-05] MEDS ORDERED: morphine SULFATE 4 MG/ML VIAL ONE (20:27)
[2023-11-05] MEDS: morphine SULFATE 4 MG/ML VIAL IVPUSH ONE (20:32)
[2023-11-05 20:35] LABS: POTASSIUM 3.4 mmol/L (3.5-5.1)
[2023-11-05 20:39] LABS: BLOOD UREA NITROGEN 8.9 mg/dL (7-18); CALCIUM 9.3 mg/dL (8.5-10.1); INR 1.08 (0.83-1.09); PROTHROMBIN TIME (PATIENT) 12.4 SEC (9.7-13.0)
[2023-11-05 20:42] LABS: CREATININE 0.8 mg/dL (0.55-1.3)
[2023-11-05 20:44] LABS: BILIRUBIN,TOTAL 0.8 mg/dL (0.2-1); LACTIC ACID 2.1 mmol/L (0.4-2.0); TOT PROT 8.2 g/dl (6.4-8.2)
[2023-11-05] MEDS: ONDANSETRON 4 MG/2 ML VIAL IVPB ONE (21:31)
[2023-11-06] MEDS ORDERED: ACETAMINOPHEN INJECTION 100 ML ONE (01:29)
[2023-11-06] MEDS: ACETAMINOPHEN 1000 MG/100 ML BAG IVPB ONE (01:34)
[2023-11-06] MEDS ORDERED: MORPHINE SULFATE 2 MG/ML SYRINGE IVPUSH PRN (02:39)
[2023-11-06] MEDS ORDERED: ACETAMINOPHEN 1000 MG/100 ML BAG IVPB PRN (02:40)
[2023-11-06 02:49] LABS: COCAINE, UR NEGATIVE (NEGATIVE); METHADONE, UR NEGATIVE (NEGATIVE); URINE BARBITURATES NEGATIVE (NEGATIVE)
[2023-11-06 02:50] LABS: PHENCYCLIDINE,URINE NEGATIVE (NEGATIVE)
[2023-11-06 03:00] LABS: OPIATES, URI POSITIVE (NEGATIVE); URINE AMPHETAMINES NEGATIVE (NEGATIVE); URINE BENZODIAZEPINES NEGATIVE (NEGATIVE)
[2023-11-06] MEDS ORDERED: KCL 10 MEQ IVPB 20 MEQ/200 ML INFUS.BAG IVPB ONE (03:11)
[2023-11-06] MEDS: KCL 10 MEQ IVPB 10 MEQ/100 ML INFUS.BAG IVPB SCH (03:21)
[2023-11-06] MEDS ORDERED: methylPREDNISolone NA SUCC 40 MG/1 ML VIAL IVPB SCH (06:00)
[2023-11-06] MEDS ORDERED: methylPREDNISolone NA SUCC 125 MG/2 ML VIAL IVPB SCH (06:00)
[2023-11-06] MEDS ORDERED: PANTOPRAZOLE SODIUM 40 MG VIAL ONE (07:27)
[2023-11-06 07:29] LABS: BASO % 0.1 % (0-2.0); HEMATOCRIT 36.1 % (35.4-49); HEMOGLOBIN 11.7 GM/dL (11.7-16.9); LYMPH % 8.9 % (8-40); MCH 23.8 pg (25.7-33.7); MCHC 32.3 g/dl (32.0-35.9); MEAN CELL VOLUME 73.6 fl (80-96); MEAN PLT VOLUME 8.1 fl (7.5-11.1); MONO % 5.6 % (3.8-10.2); NEUT % 85.4 % (42.8-82.8); PLATELET COUNT 322 10^3/uL (134-434); RDW 15.4 % (11.9-15.9); WHITE BLOOD COUNT 15.8 K/mm3 (4.0-10.0)
[2023-11-06] MEDS: MESALAMINE 800 MG TABLET.DR PO SCH (07:33)
[2023-11-06 07:41] LABS: POTASSIUM 3.8 mmol/L (3.5-5.1)
[2023-11-06 07:51] LABS: ALBUMIN 3.7 g/dl (3.4-5.0); BLOOD UREA NITROGEN 6.8 mg/dL (7-18); CALCIUM 8.9 mg/dL (8.5-10.1); MAGNESIUM 2.1 mg/dL (1.8-2.4)
[2023-11-06 07:54] LABS: CREATININE 0.6 mg/dL (0.55-1.3)
[2023-11-06 07:55] LABS: BILIRUBIN,TOTAL 0.5 mg/dL (0.2-1); PHOSPHOROUS 2.8 mg/dL (2.5-4.9); TOT PROT 7.5 g/dl (6.4-8.2)
[2023-11-06] MEDS: PANTOPRAZOLE SODIUM 40 MG VIAL IVPUSH SCH (10:01)
[2023-11-06] MEDS ORDERED: ONDANSETRON 4 MG/2 ML VIAL ONE (10:48)
[2023-11-06] MEDS: ONDANSETRON 4 MG/2 ML VIAL IVPUSH PRN (10:52)
[2023-11-06] MEDS ORDERED: METOCLOPRAMIDE HCL INJECTION 10 MG/2 ML VIAL ONE (11:54)
[2023-11-06] MEDS: METOCLOPRAMIDE HCL INJECTION 10 MG/2 ML VIAL IVPUSH PRN (12:02)
[2023-11-06 15:11] VITALS: BP 114/61; PULSE 670; TEMP 98.9
== END 2023-11-06 15:05 | disposition home or self-care (01) ==
LOC: JER 18:25 → JERBED 11-06 01:48
PROVIDERS: ADMIT Internal Medicine
PROC: 3E033NZ Introduction of Analgesics, Hypnotics, Sedatives into Peripheral Vein, Percutaneous Approach (ICD-10-PCS; principal; 2023-11-06)
PROC: 3E0337Z Introduction of Electrolytic and Water Balance Substance into Peripheral Vein, Percutaneous Approach (ICD-10-PCS; 2023-11-06)
PROC: 3E033GC Introduction of Other Therapeutic Substance into Peripheral Vein, Percutaneous Approach (ICD-10-PCS; 2023-11-06)
PROC: 3E033NZ Introduction of Analgesics, Hypnotics, Sedatives into Peripheral Vein, Percutaneous Approach (ICD-10-PCS; 2023-11-06)
DX: F12.188 Cannabis abuse with other cannabis-induced disorder (principal); K50.90 Crohn's disease, unspecified, without complications; R11.2 Nausea with vomiting, unspecified; R10.13 Epigastric pain; F90.9 Attention-deficit hyperactivity disorder, unspecified type; M41.9 Scoliosis, unspecified
CPT/HCPCS: 36415; 74177-TC; 80053; 80307; 82962; 83605; 83690; 83735; 84100; 85025; 85610; 85651; 85730; 86140; 86850; 86900; 86901; 93005; 93010; 96361; 96365; 96375; 96376; 99285-25; G0378; J0131

== ENCOUNTER 2024-02-19 13:56 | Observation (INO) | payer OTHER ==
[2024-02-19] MEDS ORDERED: ACETAMINOPHEN INJECTION 100 ML ONE (15:49)
[2024-02-19] MEDS ORDERED: ONDANSETRON 4 MG/2 ML VIAL ONE (15:49)
[2024-02-19] MEDS: SODIUM CHLORIDE 0.9% 500 ML INFUS.BAG IV ONE (16:00)
[2024-02-19 16:01] LABS: BASO % 0.2 % (0-2.0); EOS % 0.1 % (0-4.5); HEMATOCRIT 38.8 % (35.4-49); HEMOGLOBIN 12.6 GM/dL (11.7-16.9); MCH 23.8 pg (25.7-33.7); MCHC 32.5 g/dl (32.0-35.9); MEAN CELL VOLUME 73.2 fl (80-96); MEAN PLT VOLUME 7.6 fl (7.5-11.1); MONO % 4.3 % (3.8-10.2); NEUT % 87.4 % (42.8-82.8); PLATELET COUNT 363 10^3/uL (134-434); RBC 5.29 M/mm3 (4.00-5.60); RDW 16.9 % (11.9-15.9); WHITE BLOOD COUNT 19.3 K/mm3 (4.0-10.0)
[2024-02-19] MEDS: ONDANSETRON 4 MG/2 ML VIAL IVPUSH ONE (16:01)
[2024-02-19] MEDS: ACETAMINOPHEN 1000 MG/100 ML BAG IVPB ONE (16:01)
[2024-02-19 16:31] LABS: POTASSIUM 3.6 mmol/L (3.5-5.1)
[2024-02-19] MEDS ORDERED: morphine SULFATE 4 MG/ML VIAL ONE (16:31)
[2024-02-19 16:33] LABS: ALBUMIN 3.6 g/dl (3.4-5.0); BLOOD UREA NITROGEN 6.1 mg/dL (7-18); CALCIUM 9.1 mg/dL (8.5-10.1); MAGNESIUM 1.9 mg/dL (1.8-2.4)
[2024-02-19] MEDS: morphine SULFATE 4 MG/ML VIAL IVPUSH ONE (16:34)
[2024-02-19 16:36] LABS: CREATININE 0.8 mg/dL (0.55-1.3)
[2024-02-19 16:38] LABS: BILIRUBIN,TOTAL 0.2 mg/dL (0.2-1); TOT PROT 7.4 g/dl (6.4-8.2)
[2024-02-19 17:16] LABS: HIV INTERPRETATION NEGATIVE (NEGATIVE)
[2024-02-19] MEDS ORDERED: METOCLOPRAMIDE HCL INJECTION 10 MG/2 ML VIAL ONE (18:54)
[2024-02-19] MEDS: METOCLOPRAMIDE HCL INJECTION 10 MG/2 ML VIAL IVPUSH ONE (18:59)
[2024-02-19] MEDS ORDERED: METOCLOPRAMIDE HCL INJECTION 10 MG/2 ML VIAL IVPUSH PRN (20:11)
[2024-02-19] MEDS ORDERED: HALOPERIDOL LACTATE 5 MG/ML ONE (20:23)
[2024-02-19] MEDS: HALOPERIDOL LACTATE 5 MG/ML IM ONE (20:33)
[2024-02-19] MEDS ORDERED: ACETAMINOPHEN 1000 MG/100 ML BAG IVPB PRN (21:38)
[2024-02-19] MEDS ORDERED: ONDANSETRON 4 MG/2 ML VIAL IVPUSH PRN (21:38)
[2024-02-19] MEDS: SODIUM CHLORIDE 1,000 ML IV SCH (23:53)
[2024-02-19] MEDS: MESALAMINE 800 MG TABLET.DR PO SCH (23:54)
[2024-02-19] MEDS: MELATONIN 5 MG TABLETS PO ONE (23:54)
[2024-02-20 02:11] VITALS: RESP 18; BMI 24.3
[2024-02-20 06:26] LABS: PH,URINE 6.5 (5.0-8.0); URINE APPEARANCE CLEAR; URINE BILIRUBIN NEGATIVE (NEGATIVE); URINE COLOR YELLOW; URINE GLUCOSE (UA) NEGATIVE (NEGATIVE); URINE KETONE NEGATIVE (NEGATIVE); URINE LEUK ESTERASE NEGATIVE (NEGATIVE); URINE NITRITE NEGATIVE (NEGATIVE); URINE PROTEIN NEGATIVE (NEGATIVE); URINE UROBILINOGEN 0.2 mg/dL (0.2-1.0)
[2024-02-20 06:32] LABS: METHADONE, UR NEGATIVE (NEGATIVE); URINE BENZODIAZEPINES NEGATIVE (NEGATIVE)
[2024-02-20 06:33] LABS: PHENCYCLIDINE,URINE NEGATIVE (NEGATIVE); URINE AMPHETAMINES NEGATIVE (NEGATIVE); URINE BARBITURATES NEGATIVE (NEGATIVE)
[2024-02-20 06:47] LABS: COCAINE, UR NEGATIVE (NEGATIVE); OPIATES, URI POSITIVE (NEGATIVE)
[2024-02-20 07:51] LABS: BASO % 0.1 % (0-2.0); EOS % 0.1 % (0-4.5); HEMATOCRIT 37.4 % (35.4-49); HEMOGLOBIN 12.2 GM/dL (11.7-16.9); MCH 23.8 pg (25.7-33.7); MCHC 32.7 g/dl (32.0-35.9); MEAN CELL VOLUME 72.9 fl (80-96); MEAN PLT VOLUME 7.8 fl (7.5-11.1); MONO % 9.4 % (3.8-10.2); NEUT % 76.4 % (42.8-82.8); PLATELET COUNT 367 10^3/uL (134-434); RBC 5.13 M/mm3 (4.00-5.60); RDW 16.7 % (11.9-15.9); WHITE BLOOD COUNT 18.9 K/mm3 (4.0-10.0)
[2024-02-20 08:11] LABS: POTASSIUM 3.4 mmol/L (3.5-5.1)
[2024-02-20 08:16] LABS: MAGNESIUM 1.7 mg/dL (1.8-2.4)
[2024-02-20 08:19] LABS: CALCIUM 9.1 mg/dL (8.5-10.1); CREATININE 0.7 mg/dL (0.55-1.3)
[2024-02-20 08:20] LABS: ALBUMIN 3.4 g/dl (3.4-5.0)
[2024-02-20 08:23] LABS: PHOSPHOROUS 3.3 mg/dL (2.5-4.9)
[2024-02-20 08:25] LABS: BILIRUBIN,TOTAL 0.4 mg/dL (0.2-1); TOT PROT 6.8 g/dl (6.4-8.2)
[2024-02-20] MEDS: ENOXAPARIN NA (PORCINE) 40 MG/0.4 ML DISP.SYRIN SQ SCH (09:06)
[2024-02-20 12:01] VITALS: BP 127/70; PULSE 68; TEMP 98.3
== END 2024-02-20 12:08 | disposition home or self-care (01) ==
LOC: JER 13:56 → JERBED 19:39 → J7W 21:42
PROVIDERS: ADMIT Internal Medicine; ATTEND Internal Medicine
PROC: 3E033GC Introduction of Other Therapeutic Substance into Peripheral Vein, Percutaneous Approach (ICD-10-PCS; principal; 2024-02-19)
PROC: 3E033NZ Introduction of Analgesics, Hypnotics, Sedatives into Peripheral Vein, Percutaneous Approach (ICD-10-PCS; 2024-02-19)
PROC: 3E03329 Introduction of Other Anti-infective into Peripheral Vein, Percutaneous Approach (ICD-10-PCS; 2024-02-19)
PROC: 3E0337Z Introduction of Electrolytic and Water Balance Substance into Peripheral Vein, Percutaneous Approach (ICD-10-PCS; 2024-02-19)
DX: K50.814 Crohn's disease of both small and large intestine with abscess (principal); K52.9 Noninfective gastroenteritis and colitis, unspecified; K21.9 Gastro-esophageal reflux disease without esophagitis; F12.90 Cannabis use, unspecified, uncomplicated; Z90.49 Acquired absence of other specified parts of digestive tract; R11.10 Vomiting, unspecified
CPT/HCPCS: 0241U-QW; 36415; 74177-TC; 80053; 80307; 81003; 82728; 83540; 83690; 83735; 84100; 85025; 85045; 85651; 86140; 86803; 87086; 87389; 93005; 93010; 99285-25; G0378; J0131

== ENCOUNTER 2024-06-07 13:12 | Observation (INO) | payer OTHER ==
[2024-06-07 14:05] VITALS: RESP 18
[2024-06-07] MEDS ORDERED: ONDANSETRON 4 MG/2 ML VIAL ONE ×2 (17:29→22:50)
[2024-06-07] MEDS ORDERED: ACETAMINOPHEN INJECTION 100 ML ONE (17:29)
[2024-06-07] MEDS: ONDANSETRON 4 MG/2 ML VIAL IVPUSH ONE ×2 (17:37→22:56)
[2024-06-07] MEDS: ACETAMINOPHEN 1000 MG/100 ML BAG IVPB ONE (17:37)
[2024-06-07 17:38] LABS: HEMATOCRIT 39.3 % (40.1-51.0); HEMOGLOBIN 13.1 g/dL (13.7-17.5); MCHC 33.3 g/dl (32.3-36.5); MEAN CELL VOLUME 73.2 fl (79.0-92.2); MEAN PLT VOLUME 9.4 fl (9.4-12.4); PLATELET COUNT 389 x10^3/uL (163-337); RDW 15.3 % (11.9-15.3)
[2024-06-07 18:03] LABS: POTASSIUM 3.5 mmol/L (3.5-5.1)
[2024-06-07 18:05] LABS: ALBUMIN 4.2 g/dl (3.4-5.0); CALCIUM 9.7 mg/dL (8.5-10.1)
[2024-06-07 18:06] LABS: MAGNESIUM 1.9 mg/dL (1.8-2.4)
[2024-06-07 18:09] LABS: CREATININE 0.9 mg/dL (0.55-1.3)
[2024-06-07 18:10] LABS: BILIRUBIN,TOTAL 0.5 mg/dL (0.2-1); TOT PROT 8.1 g/dl (6.4-8.2)
[2024-06-07 18:11] LABS: PHOSPHOROUS 1.2 mg/dL (2.5-4.9)
[2024-06-07] MEDS ORDERED: CIPROFLOXACIN 500 MG TABLET (RESTRICTED TO ID) PO ONE (22:30)
[2024-06-07] MEDS ORDERED: metroNIDAZOLE 500 MG TABLET PO ONE (22:31)
[2024-06-07] MEDS: MESALAMINE 800 MG TABLET.DR PO SCH (22:56)
[2024-06-07] MEDS ORDERED: metroNIDAZOLE 250 MG TABLET ONE (23:15)
[2024-06-07] MEDS: metroNIDAZOLE 250 MG TABLET PO ONE (23:21)
[2024-06-08] MEDS ORDERED: POTASSIUM PHOSPHATE 30 MM in SODIUM CHLORIDE 500 ML IVPB ONE (00:15)
[2024-06-08 02:16] VITALS: BMI 23.0
[2024-06-08] MEDS: AMPICILLIN NA/SULBACTAM NA 3 GM in SODIUM CHLORIDE 100 ML IVPB SCH (02:51)
[2024-06-08] MEDS: SODIUM CHLORIDE 1,000 ML IV SCH (02:54)
[2024-06-08] MEDS: MELATONIN 5 MG TABLETS PO PRN (03:05)
[2024-06-08] MEDS: POTASSIUM PHOSPHATE 30 MM in SODIUM CHLORIDE 500 ML IVPB ONE (04:05)
[2024-06-08 07:39] LABS: HEMATOCRIT 39.1 % (40.1-51.0); HEMOGLOBIN 12.8 g/dL (13.7-17.5); MCHC 32.7 g/dl (32.3-36.5); MEAN CELL VOLUME 72.9 fl (79.0-92.2); MEAN PLT VOLUME 9.2 fl (9.4-12.4); PLATELET COUNT 414 x10^3/uL (163-337); RDW 15.3 % (11.9-15.3)
[2024-06-08 07:57] LABS: POTASSIUM 3.4 mmol/L (3.5-5.1)
[2024-06-08 07:59] LABS: ALBUMIN 3.9 g/dl (3.4-5.0); BLOOD UREA NITROGEN 8.1 mg/dL (7-18); CALCIUM 9.2 mg/dL (8.5-10.1)
[2024-06-08 08:00] LABS: MAGNESIUM 2.1 mg/dL (1.8-2.4)
[2024-06-08 08:02] LABS: CREATININE 0.8 mg/dL (0.55-1.3); PHOSPHOROUS 4.9 mg/dL (2.5-4.9)
[2024-06-08 08:04] LABS: BILIRUBIN,TOTAL 0.4 mg/dL (0.2-1); TOT PROT 7.6 g/dl (6.4-8.2)
[2024-06-08 09:13] LABS: ERYTHROCYTE SEDIMENTATION RATE 16 mm/hr (0-10)
[2024-06-08] MEDS: ENOXAPARIN NA (PORCINE) 40 MG/0.4 ML DISP.SYRIN SQ SCH (09:13)
[2024-06-08] MEDS: PANTOPRAZOLE SODIUM 40 MG VIAL IVPUSH SCH (09:13)
[2024-06-08 09:28] LABS: METHADONE, UR NEGATIVE (NEGATIVE); OPIATES, URI NEGATIVE (NEGATIVE); PHENCYCLIDINE,URINE NEGATIVE (NEGATIVE); URINE AMPHETAMINES NEGATIVE (NEGATIVE)
[2024-06-08 09:29] LABS: COCAINE, UR NEGATIVE (NEGATIVE); URINE BARBITURATES NEGATIVE (NEGATIVE)
[2024-06-08 09:34] LABS: URINE BENZODIAZEPINES NEGATIVE (NEGATIVE)
[2024-06-08] MEDS: ONDANSETRON 4 MG/2 ML VIAL IVPUSH PRN (09:56)
[2024-06-08 13:50] VITALS: BP 119/75; PULSE 85; TEMP 98.4
== END 2024-06-08 13:52 | disposition left against medical advice (07) ==
LOC: JER 13:12 → JERBED 23:39 → J7W 06-08 01:43
PROVIDERS: ADMIT Hospitalist; ATTEND Physician Assistant
PROC: 3E03329 Introduction of Other Anti-infective into Peripheral Vein, Percutaneous Approach (ICD-10-PCS; principal; 2024-06-07)
PROC: 3E033NZ Introduction of Analgesics, Hypnotics, Sedatives into Peripheral Vein, Percutaneous Approach (ICD-10-PCS; 2024-06-07)
PROC: 3E023GC Introduction of Other Therapeutic Substance into Muscle, Percutaneous Approach (ICD-10-PCS; 2024-06-07)
PROC: 3E033GC Introduction of Other Therapeutic Substance into Peripheral Vein, Percutaneous Approach (ICD-10-PCS; 2024-06-07)
DX: F12.988 Cannabis use, unspecified with other cannabis-induced disorder (principal); K50.90 Crohn's disease, unspecified, without complications; K21.9 Gastro-esophageal reflux disease without esophagitis; D72.829 Elevated white blood cell count, unspecified
CPT/HCPCS: 36415; 74177-TC; 80053; 80307; 83735; 84100; 85027; 85651; 86140; 96361; 96365; 96367; 96372; 96375; 96376; 99285-25; G0378; J0131; Q9967